=== PATIENT | female | born 1960 | race Caucasian/White ===

== ENCOUNTER → 2016-11-17 | Outpatient (CLI) | payer OTHER ==
[2015-10-04 11:30] VITALS: BP 147/75
[~2016-11-17] MED LIST: ACET325T16 PO; DOCU-27 PO; ESTR1PAT4 TP; GABA-586 PO; ROPI0.5T2 PO
--- NOTE | 2016-11-17 14:09 | RAD ---
PROCEDURE MRI cervical spine without contrast. HISTORY Neck pain for 1 week, history fusion TECHNIQUE Sagittal and axial T2, sagittal T1, sagittal STIR images were acquired of the cervical spine. Contrast: COMPARISON October 03, 2015 FINDINGS Since the previous exam, there has been anterior cervical fusion at C4, C5, C6. Exam does not accurately evaluate integrity of hardware. Cervical cord caliber is within normal limits without significant focal signal abnormality. There is no significant abnormality of the cervical medullary junction. Cervical vertebral body stature and AP alignment are maintained. There is mild mucosal thickening of the visualized maxillary sinuses greater on the right. C2-3: Spinal canal and neural foramina are adequate. C3-4: Spinal canal and neural foramina are adequate. There is minimal left uncovertebral degenerative change C4-5: There is a lesser degree of mild spinal stenosis on the order of 7-8 millimeters, previously seen protrusion no longer visualized. Left neural foramen is adequate. Right uncovertebral degenerative change contributes to likely moderate to severe narrowing of the right neural foramen although relatively decreased. C5-C6: There is a lesser degree of mild spinal stenosis on the order of 7-8 millimeters, previously seen protrusion no longer visualized. Left neural foramen is overall adequate, minimal narrowing of the right neural foramen in part from uncovertebral degenerative change. C6-7: There is again minimal disc osteophyte complex. Central canal is again minimally narrowed to 8 millimeters. Neural foramina are adequate. C7-T1: Spinal canal and neural foramina are adequate. IMPRESSION 1. Since the previous 2015 exam, there has been anterior cervical fusion C4, C5, C6. Exam does not accurately evaluate the hardware. There is now a lesser degree of mild spinal stenosis C4-5 and C5-C6, similar mild spinal stenosis C6-7. There is narrowing of the right C4-5 neural foramen by uncovertebral degenerative change. Electronically signed by: Brett Denton MD (Nov 17, 2016 14:08:50)
== END | disposition home or self-care (01) ==
LOC: MRI 12:29
PROVIDERS: ATTEND Neurological Surgery
DX: M54.12 Radiculopathy, cervical region (principal)
CPT/HCPCS: 72141